=== PATIENT | female | born 1950 | race Caucasian/White ===

== ENCOUNTER → 2017-01-16 | Outpatient (CLI) | payer MEDICARE, MEDICAID ==
[2017-01-16 13:34] LABS: THYROID STIMULATING HORMONE 3.99 UIU/ML (0.35-4.94)
== END ==
LOC: LAB 12:39
PROVIDERS: ATTEND Nurse Practitioner Family
DX: I10 Essential (primary) hypertension (principal); R06.09 Other forms of dyspnea; R60.9 Edema, unspecified; R07.89 Other chest pain
CPT/HCPCS: 36415; 80061; 83735; 83880; 84443

== ENCOUNTER → 2019-05-15 | Outpatient (CLI) | payer OTHER, MEDICAID ==
[~2019-05-15] VITALS: Ht 165 cm; Wt 102.0 kg
[~2019-05-15] MED LIST: CATHETER FLUSH 10 ML SYR IV PRN; REGADENOSON 0.4 MG/5 ML SYR (LEXISCAN) IV ONE
[2019-05-15 12:55] VITALS: BP 150/106
[2019-05-15 13:00] VITALS: BP 153/89
== END ==
LOC: CARD 11:34
PROVIDERS: ATTEND Internal Medicine Interventional Cardiology
DX: I10 Essential (primary) hypertension (principal); J44.9 Chronic obstructive pulmonary disease, unspecified; B19.20 Unspecified viral hepatitis C without hepatic coma; R07.2 Precordial pain; R06.02 Shortness of breath
CPT/HCPCS: 78452; 93017